=== PATIENT | male | born 1980 | race Caucasian/White ===

== ENCOUNTER 2016-09-08 14:02 | Emergency (ER) | payer OTHER ==
[~2016-09-08] VITALS: Ht 188 cm; Wt 88.0 kg
[~2016-09-08 14:02] MED LIST: LORA-441
[2016-09-08 14:06] VITALS: Ht 188 cm; Wt 88.0 kg
[2016-09-08 14:54] LABS: URINE BLOOD (Dip) POC Negative (NEGATIVE)
--- NOTE | 2016-09-08 15:33 | RADRPT ---
PROCEDURE: XR Ribs. CLINICAL INDICATION: Trauma, left ear pain TECHNIQUE: 3 views of the left ribs were obtained. COMPARISON: None. FINDINGS: A fracture of a lower, approximately 11th left with the is identified without significant displaceme nt. No other rib fracture is seen. There is mild left basilar atelectasis. No pneumothorax is vis ualized. IMPRESSION: Lower left, approximately 11th rib fracture. Mild left basilar atelectasis. RPTAT: VV .Adiel Burkett MD, Date Time Electronically viewed and signed by .Adiel Burkett MD, on 09/08/2016 15:32 .O/
[2016-09-08] MEDS ORDERED: IBUP-1542 PO (15:44)
--- NOTE | 2016-09-08 15:59 | ERD ---
ER Documentation Chief Complaint Date/Time DATE: 09/08/16 TIME: 15:53 Chief Complaint left rib pain/injury HPI This 36-year-old male complains of left rib pain after rolling out of bed and hitting his left rib on the coffee table. He has some bruising. He has pain with deep breathing and movement. Possibly had a slight amount of blood when he coughed once. He denies any hematuria, fevers, weakness or bowel or bladder incontinence. ROS All systems reviewed and are negative except as per history of present illness. Medications Home Meds Active Scripts Ibuprofen* (Motrin*) 600 Mg Tab, 600 MG PO Q6, #20 TAB Prov:ACACIA CORNEJO MD 09/08/16 Reported Medications Lorazepam* (Ativan*) 0.5 Mg Tablet 09/11/12 Allergies Allergies: Coded Allergies: No Known Allergy (Unverified , 09/11/12) PMhx/Soc History of Surgery: No Anesthesia Reaction: No Hx Neurological Disorder: Yes (epilepsy) Hx Respiratory Disorders: No Hx Cardiac Disorders: No Hx Psychiatric Problems: Yes (ANXIETY.) Hx Miscellaneous Medical Probl: No Hx Alcohol Use: No Hx Substance Use: No Hx Tobacco Use: Yes (SIGARRETS, 1 PACK/DAY.) Smoking Status: Current some day smoker Physical Exam Vitals Vital Signs Date Time Temp Pulse Resp B/P Pulse Ox O2 Delivery O2 Flow Rate FiO2 09/08/16 14:06 97.7 124 18 132/91 99 Physical Exam Const: [] Alert, [id number]. Head: Atraumatic Eyes: Normal Conjunctiva ENT: Normal External Ears, Nose and Mouth. Neck: Full range of motion..~ No meningismus. Resp: Clear to auscultation bilaterally. Some bruising on the left posterior T11 area approximately. There is no crepitance or erythema. Cardio: Regular rate and rhythm, no murmurs Abd: Soft, non tender, non distended. Normal bowel sounds Skin: No petechiae or rashes Back: No midline or flank tenderness Ext: No cyanosis, or edema Neur: Awake and alert Psych: Normal Mood and Affect Results 24 hrs Laboratory Tests Test 09/08/16 14:54 Bedside Urine Blood Negative Bedside Urine Glucose (UA) Negative Bedside Urine Ketones (LAB) Negative Bedside Urine Leukocyte Esterase (L Negative Bedside Urine Nitrite (LAB) Negative Bedside Urine Protein (LAB) Negative Bedside Urine pH (LAB) 6.5 Procedures/MDM Urine is negative for hemoglobin, leukocytes, nitrites and glucose. X-ray left ribs 2V Interpreted by me: Soft Tissue: No acute abnormalities Bones: There is a nondisplaced fracture approximately T11. Mediastinum/Cardiac Silhouette/Lungs: [No acute abnormalities]. Impression- approximately T11 left nondisplaced posterior rib fracture Patient declined any pain medication. Patient was given an Keanu bandage by request for help with sleeping although it was discussed that he needs to remove it and take deep breaths several times a day to prevent pneumonia. Patient shows no signs of hemothorax, pneumothorax., Sepsis, renal or intra- abdominal injury. We discharged home with a prescription of ibuprofen instructions to recheck for fevers, hemoptysis, shortness breath, new or worsening symptoms. The patient was stable with no new complaints during the ER course. Clinically, there is no current evidence to suggest meningitis, sepsis, acute abdomen, pneumonia, acute coronary syndrome, pulmonary embolism, or any other emergent condition appearing to require further evaluation or hospitalization. The patient should certainly return for any new or worsening symptoms per the aftercare instructions. They should otherwise follow-up with her primary care doctor for reevaluation this week. Departure Diagnosis: Primary Impression: Left rib fracture Encounter type: initial encounter Rib fracture type: single rib Fracture type: closed Qualified Code: S22.32XA - Closed fracture of one rib of left side, initial encounter Condition: Stable Patient Instructions: Rib Fracture (Broken Rib) Additional Instructions: There is a fracture of the 11th rib noted on x-ray. There are no other identified complications . Recheck for fever, blood, shortness of breath, new or worsening symptoms. ACACIA CORNEJO MD Sep 08, 2016 15:59
[2016-09-08] MEDS ORDERED: POLY10DR19 BOTH EYES (16:09)
== END 2016-09-08 16:16 | disposition home or self-care (01) ==
LOC: FTE 14:02
DX: S22.32XA Fracture of one rib, left side, initial encounter for closed fracture (principal); F17.210 Nicotine dependence, cigarettes, uncomplicated; W06.XXXA Fall from bed, initial encounter; Y92.9 Unspecified place or not applicable
CPT/HCPCS: 71100; 81003